=== PATIENT | female | born 1945 | race Caucasian/White ===

== ENCOUNTER → 2017-08-04 | Outpatient (CLI) | payer MEDICARE, BC ==
[2017-08-04 15:35] VITALS: BP 154/70; PULSE 63; RESP 16
--- NOTE | 2017-08-06 19:06 | P.PAINCN ---
History of Present Illness - Reason for Consult Consult date: 08/04/17 - History of Present Illness This is 72 years old female, with a chronic history of severe low back pain diagnosed with failed back surgery syndrome, the last time was seen at [facility] pain clinic was in 2014, patient came in for follow-up visit and she is currently on OxyContin 80 mg every 8 hours and oxycodone 10 mg when necessary, patient was not examined or evaluated by me because, patient talked to the nurse, and the nurse told the patient and her , that the [facility] pain clinic do not ,do medication management anymore , we do interventional pain management only , patient left the clinic without being seen by me Past Medical History Past Medical History: Coronary Artery Disease (CAD), Cancer, Chest Pain / Angina , Hyperlipidemia, Myocardial Infarction (DC), Thyroid Disorder Additional Past Medical History / Comment(s): chronic lumbar back pain status post multiple laminectomies and fusions, breast cancer bilateral status post bilateral mastectomies with reconstruction that failed and multiple surgeries torepair,anxiety Last Myocardial Infarction Date:: 1989 History of Any Multi-Drug Resistant Organisms: None Reported Past Surgical History: Back Surgery, Breast Surgery, Cholecystectomy, Coronary Bypass/CABG, Heart Catheterization Additional Past Surgical History / Comment(s): LAMENCTOMY/ FUSIONS/METAL IN BACK 5 SX TOTAL, ANGIOPLSTY 25 YEARS AGO, MILADYS MASECTOMY with failed reconstruction and multiple surgeries to repair Past Anesthesia/Blood Transfusion Reactions: No Reported Reaction Additional Past Alcohol Use History / Comment(s): STARTED SMOKING AT AGE 16- SMOKES 1 PPD. She denies any medical marijuana, marijuana or street drug use. She denies any alcohol use or abuse. 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 She has 3 children that are healthy - Past Family History Father Additional Family Medical History / Comment(s): DURING SX FOR BLOKED ARTERIES at age 48 Mother Family Medical History: Cancer Additional Family Medical History / Comment(s): at age 70 from metastatic breast cancer Brother(s) Family Medical History: Diabetes Mellitus, Neurologic Disorder Additional Family Medical History / Comment(s): She had one brother age 40 from diabetic complications, one brother that at age 32 that had hydrocephalus Sister(s) Additional Family Medical History / Comment(s): One sister at age 35 with history of mental health disorder and possible suicide, one sister at age 27 from complications from AIDS. Medications and Allergies Home Medications Medication Instructions Recorded Confirmed Type ALPRAZolam [Xanax] 0.5 mg PO HS PRN 03/11/14 08/04/17 History Albuterol Inhaler [Ventolin Hfa 1 - 2 puff INHALATION Q6HR PRN 03/11/14 History Inhaler] Albuterol Sulfate [Proair Hfa] 1 - 2 puff INHALATION Q6HR PRN 03/11/14 08/04/17 History Levothyroxine Sodium [Synthroid] 200 mcg PO DAILY 03/11/14 08/04/17 History Magnesium Gluconate [Magonate] 500 mg PO DAILY 03/11/14 08/04/17 History Aspirin EC [Ecotrin Low Dose] 162 mg PO DAILY #30 tablet. 03/18/14 08/04/17 Rx Atorvastatin [Lipitor] 80 mg PO DAILY #30 tab 03/18/14 08/04/17 Rx Lisinopril [Zestril] 2.5 mg PO DAILY #30 tab 03/18/14 08/04/17 Rx Potassium Chloride ER [K-Dur 20] 20 meq PO DAILY 04/10/14 08/04/17 History oxyCODONE ER [OxyCONTIN] 80 mg PO Q8H #270 tab.er.12h 04/10/14 08/04/17 Rx Budesonide/Formoterol Fumarate 2 puff INHALATION BID 07/03/14 08/04/17 History [Symbicort 80-4.5 Mcg Inhaler] oxyCODONE HCL [OxyCONTIN] 10 mg PO DIRECTED PRN 07/03/14 08/04/17 History Furosemide [Lasix] 20 mg PO DAILY 09/25/14 08/04/17 History Allergies Allergy/AdvReac Type Severity Reaction Status Date / Time citalopram hydrobromide Allergy Swelling Verified 08/04/17 12:45 [From Celexa] ibuprofen [From Motrin] Allergy Swelling Verified 08/04/17 12:45 nicotine [From Nicoderm CQ] Allergy Rash/Hives Verified 08/04/17 12:45 PQRS Measure Charge Sheet PQRS Narrative: Smoking Status Former smoker Narcotic Agreement Date Signed 04/10/14 Home Medications: Ambulatory Orders ALPRAZolam [Xanax] 0.5 mg PO HS PRN 03/11/14 Albuterol Inhaler [Ventolin Hfa Inhaler] 1 - 2 puff INHALATION Q6HR PRN Albuterol Sulfate [Proair Hfa] 1 - 2 puff INHALATION Q6HR PRN 03/11/14 Levothyroxine Sodium [Synthroid] 200 mcg PO DAILY 03/11/14 Magnesium Gluconate [Magonate] 500 mg PO DAILY 03/11/14 Aspirin EC [Ecotrin Low Dose] 162 mg PO DAILY #30 tablet.dr 03/18/14 Atorvastatin [Lipitor] 80 mg PO DAILY #30 tab 03/18/14 Lisinopril [Zestril] 2.5 mg PO DAILY #30 tab 03/18/14 Potassium Chloride ER [K-Dur 20] 20 meq PO DAILY 04/10/14 oxyCODONE ER [OxyCONTIN] 80 mg PO Q8H #270 tab.er.12h 04/10/14 Budesonide/Formoterol Fumarate [Symbicort 80-4.5 Mcg Inhaler] 2 puff INHALATION BID 07/03/14 oxyCODONE HCL [OxyCONTIN] 10 mg PO DIRECTED PRN 07/03/14 Furosemide [Lasix] 20 mg PO DAILY 09/25/14
== END | disposition home or self-care (01) ==
LOC: PNWHC3 12:04
PROVIDERS: ATTEND Specialist
DX: M96.1 Postlaminectomy syndrome, not elsewhere classified (principal); E07.9 Disorder of thyroid, unspecified; I21.9 Acute myocardial infarction, unspecified; E78.5 Hyperlipidemia, unspecified; Z79.899 Other long term (current) drug therapy; Z79.82 Long term (current) use of aspirin; Z79.891 Long term (current) use of opiate analgesic; Z88.8 Allergy status to other drugs, medicaments and biological substances; Z88.6 Allergy status to analgesic agent; Z87.891 Personal history of nicotine dependence; Z98.890 Other specified postprocedural states; Z90.49 Acquired absence of other specified parts of digestive tract; Z95.5 Presence of coronary angioplasty implant and graft
CPT/HCPCS: 99211

== ENCOUNTER → 2017-11-03 | Outpatient (CLI) | payer MEDICARE, BC ==
--- NOTE | 2017-11-03 09:37 | CT ---
EXAMINATION TYPE: CT lumbar spine wo con DATE OF EXAM: 11/03/2017 9:25 AM COMPARISON: None HISTORY: Low back pain CT DLP: 604.8 mGycm Automated exposure control for dose reduction was used. Unenhanced CT of the lumbar spine was performed. Bone and soft tissue window settings are submitted as well as coronal and sagittal reconstructions. L1-L2: Hypertrophic change of the facets. No obvious disc herniation or canal stenosis. Neural forami na appear patent. L2-L3: Facet arthropathy with findings suggestive of previous surgery. No canal stenosis or disc leobardo iation. Neural foramina are patent. Abnormal attenuation along the posterior elements likely is relat ed to postsurgical scar. L3-L4: Postsurgical changes suggestive of laminectomy. There is no canal stenosis or foraminal encroa chment. Attenuation posterior to the spinal canal likely related to postsurgical changes. L4-L5: Postsurgical changes with extensive metal artifact which obscures assessment spinal canal. No obvious foraminal encroachment. Assessment for disc herniation or canal stenosis limited. L5-S1: Grade 2 anterolisthesis of L5 on S1. There is severe metallic artifact which obscures the spin al canal and neural foramina and results in a nondiagnostic exam. Suspect significant bilateral wiley inal encroachment. Atherosclerotic changes of the aorta are seen. Left-sided mass within the left kidney parapelvic julissa on measures 3 cm and 9 Hounsfield units compatible with parapelvic cyst. There is a 3 mm nonobstructi ng left renal calculus. IMPRESSION: 1. Limited exam due to severe metallic artifact demonstrates a grade 2/3 anterolisthesis of L5 on S1. 2. Extensive postsurgical changes with no diagnostic evidence of disc herniation or canal stenosis at the visualized levels. Abnormal attenuation involving the posterior margin of L3 and L4 outside of t he spinal canal likely related to postsurgical changes. If there is concern for infection contrast MR I would BE recommended. 3. Nonobstructing left renal calculus
== END | disposition home or self-care (01) ==
LOC: RADCTMAIN 09:04
PROVIDERS: ATTEND Psychiatry & Neurology Neurology
DX: M43.17 Spondylolisthesis, lumbosacral region (principal); Z98.890 Other specified postprocedural states; Z79.1 Long term (current) use of non-steroidal anti-inflammatories (NSAID)
CPT/HCPCS: 72131

== ENCOUNTER → 2017-11-16 | Outpatient (CLI) | payer MEDICARE, BC ==
--- NOTE | 2017-11-16 13:04 | MR ---
EXAMINATION TYPE: MR cervical spine wo/w con DATE OF EXAM: 11/16/2017 COMPARISON: None HISTORY: Neck pain. History of breast cancer. No prior cervical spine surgery. TECHNIQUE: Multiplanar, multisequence images of the cervical spine were acquired utilizing 7 mL intravenous Gada vist gadolinium contrast. Diffusion weighted imaging was performed. FINDINGS: There is straightening of usual cervical lordosis. Multilevel degenerative disc disease is seen. Bone marrow signal is within normal limits. No suspicious osseous lesions are noted. Visualized portions of the posterior fossa are grossly unremarkable. Clivus maintains normal bone marrow signal . Vertebral body heights and alignment of the cervical spine are maintained. C2-C3: There is a small central disc osteophyte complex and facet arthropathy creating mild left neur al foraminal narrowing. No spinal canal stenosis or right neural foraminal narrowing. C3-C4: There is a small posterior disc osteophyte complex and left-sided facet arthropathy creating c reating mild left neural foraminal narrowing. No spinal canal stenosis or right neural foraminal narr owing. C4-C5: There is effacement of the ventral subarachnoid space with a broad-based disc bulge and uncove rtebral hypertrophy creating mild bilateral neural foraminal narrowing and mild spinal canal stenosis . C5-C6: There is a small central disc herniation and broad-based disc bulge creating effacement of cali tral subarachnoid space. There is also uncovertebral hypertrophy and facet arthropathy that result in severe left neural foraminal narrowing and moderate right neural foraminal narrowing. Mild spinal ca nal stenosis is present. C6-C7: There is minimal narrowing of the ventral subarachnoid space. This is secondary to a broad-bas ed disc osteophyte complex and disc bulge. Uncovertebral hypertrophy and facet arthropathy result in mild bilateral neural foraminal narrowing and mild spinal canal stenosis. C7-T1: No evidence for degenerative disc disease. No disc bulge/herniation or protrusion. No Canal stenosis. Foramina are patent bilaterally. There is no abnormal postcontrast enhancement. Minimal increased T2 signal seen in the paraspinal mus culature without focal fluid collection indicative of low-grade muscular strain. Although the spinal cord appear slightly expansile from C4 through C6 this is thought to be relative due to the spinal ca nal stenosis. IMPRESSION: 1. Multilevel degenerative disc disease resulting in spinal canal stenosis from C4 through C6 (mild i n degree). 2. Small central disc herniation at C5-C6 contributing to the spinal canal stenosis. 3. Variable degrees of neural foraminal narrowing as described above secondary to the multilevel dege nerative disc disease 4. No evidence of vertebral body height loss or malalignment. No suspicious osseous lesions, no abnor mal bone marrow signal, and no abnormal enhancement on postcontrast imaging.
== END | disposition home or self-care (01) ==
LOC: RADMRIMAIN 10:32
PROVIDERS: ATTEND Psychiatry & Neurology Pain Medicine
DX: M99.71 Connective tissue and disc stenosis of intervertebral foramina of cervical region (principal); M48.02 Spinal stenosis, cervical region; M50.321 Other cervical disc degeneration at C4-C5 level; M54.2 Cervicalgia
CPT/HCPCS: 82565; 84520; 72156; 36415; A9581

== ENCOUNTER → 2018-10-19 | Outpatient (CLI) | payer MEDICARE, BC ==
--- NOTE | 2018-10-19 08:54 | CT ---
EXAMINATION TYPE: CT lumbar spine wo con DATE OF EXAM: 10/19/2018 COMPARISON: 11/03/2017 HISTORY: Back pain CT DLP: [address] of the lumbar spine was performed. Bone and soft tissue window settings are submitted as well as coronal and sagittal reconstructions. L1-L2: Hypertrophic change of the facets. No obvious disc herniation or canal stenosis. Neural forami na appear patent. L2-L3: Facet arthropathy with findings suggestive of previous surgery. No canal stenosis or disc leobardo iation. Neural foramina are patent. Abnormal attenuation along the posterior elements likely is relat ed to postsurgical scar. L3-L4: Postsurgical changes suggestive of laminectomy. There is no canal stenosis or foraminal encroa chment. Attenuation posterior to the spinal canal likely related to postsurgical changes. L4-L5: Decompressive laminectomy with the pedicular screws in place. Alignment is stable. With extens geraldine metal artifact which obscures assessment spinal canal. No obvious foraminal encroachment. Assessm ent for disc herniation or canal stenosis limited. L5-S1: STable 1.5 cm Grade 2 anterolisthesis of L5 on S1. There is severe metallic artifact which obs cures the spinal canal and neural foramina and results in a nondiagnostic exam. Suspect significant b ilateral foraminal encroachment. No paraspinal masses are identified. Atheromatous change of the abdominal aorta without evidence for aneurysm. Left renal cystic lesion redemonstrated. IMPRESSION: 1. Able postoperative changes of the lumbar spine with a stable alignment as noted above.
== END | disposition home or self-care (01) ==
LOC: RADCTMAIN 07:42
PROVIDERS: ATTEND Psychiatry & Neurology Pain Medicine
DX: M54.5 Low back pain (principal); Z98.890 Other specified postprocedural states
CPT/HCPCS: 72131